=== PATIENT | female | born 1955 | race Caucasian/White ===

== ENCOUNTER 2020-11-13 11:32 | Emergency (ER) | payer OTHER ==
[~2020-11-13] VITALS: Ht 167.6 cm; Wt 83.9 kg
[2020-11-13] MEDS ORDERED: CLONAZEPAM0.5 MG PO (11:52)
[2020-11-13] MEDS ORDERED: BUPRENORPHINE HC8 MG SL (11:52)
== END 2020-11-13 14:19 | disposition home or self-care (01) ==
LOC: ED 11:32
DX: S93.401A Sprain of unspecified ligament of right ankle, initial encounter (principal); S80.212A Abrasion, left knee, initial encounter; W01.0XXA Fall on same level from slipping, tripping and stumbling without subsequent striking against object, initial encounter; Z79.899 Other long term (current) drug therapy
CPT/HCPCS: 73610; 96372; 99283-25; J1885